=== PATIENT | male | born 1955 | race Caucasian/White ===

== ENCOUNTER 2020-12-09 15:13 | Emergency (ER) | payer OTHER, SELFPAY ==
[2020-12-09 15:13] VITALS: BP 107/79; PULSE 64; RESP 16; TEMP 37.4; O2SAT 96; BMI 24.7
--- NOTE | 2020-12-09 16:27 | CT_ITS ---
STUDY: CT LUMBAR SPINE WITHOUT CONTRAST REASON FOR EXAM: Male, 65 years old. Low back pain for a few weeks RADIATION DOSAGE (If Supplied By Facility): CTDIvol = ( 21.81 ) mGy, DLP = ( 551.99 ) mGycm TECHNIQUE: CT of the lumbar spine was performed without contrast. Sagittal and coronal images were reconstructed. Individualized dose optimization techniques were used for this CT. COMPARISON: None FINDINGS: Lumbar spine is intact with subchondral degeneration of L3-L4 based on disc collapse. There is grade 1 degenerative anterolisthesis of L4 on L5, less than 3 mm. The rest the spine is aligned. Thecal sac is moderately stenotic at L2-L3, severe at L3-L4 and L4-L5. Lateral recesses are stenotic at L3-L4 and L4-L5 bilaterally. Foramina are moderately stenotic at most lumbar levels. There is questionable right hydronephrosis versus cyst. This is incompletely evaluated. CT/Spine Lumbar without Contrast IMPRESSION: 1. Severe multilevel spondylotic thecal sac stenosis. Neurosurgical referral advised. 2. Multilevel lateral recess and foraminal stenosis. 3. Incompletely evaluated right renal findings. Refer to further imaging such as ultrasound. Electronically Signed: Schuyler Lewis MD at 18:10 EDT Tel , Service support ,
--- NOTE | 2020-12-09 16:28 | ED.VIS.BACK ---
HPI History of Present Illness Chief Complaint: Back Informant: patient Narrative Narrative: 65-year-old male presenting to the emergency department with low back pain since June. Patient tells me that is progressively gotten worse. He recently saw his primary care physician. He was taking meloxicam and stopped that is now on [place]. He states he cannot tell if the [place] is helping. He notes radiation mostly into the left leg occasionally some in the right leg. He denies any muscle strength loss. He states has been able to still kayak do the chores around the home. He notes that he has been getting up more frequently at night for urination. He feels like he empties his bladder. He denies any urinary retention, loss of perineal sensation, or fecal incontinence. He denies any injury. He denies any rashes or fevers. No IVD use. He denies any back injections. The patient notes his symptoms seem to get worse as he gets up walks around by the time he is done with his sure the pain is worse. He has difficulty finding position of comfort. He states that he has been sleeping okay during the night other than the frequent urination. PFSH PFSH Home Medications aspirin 81 mg PO DAILY 12/09/20 [History Last Taken Unknown] cranberry 400 mg PO DAILY 12/09/20 [History Last Taken Unknown] multi [id number] acid-DSS 1 tab PO/SL DAILY 12/09/20 [History Last Taken Unknown] omega-3 fatty acids [Fish Oil] 1,000 mg PO DAILY 12/09/20 [History Last Taken Unknown] Allergy/AdvReac Type Severity Reaction Status Date / Time acetaminophen [From Percocet] Allergy Other Verified 12/09/20 15:20 atorvastatin [From Lipitor] Allergy Other Verified 12/09/20 15:20 oxycodone [From Percocet] Allergy Other Verified 12/09/20 15:20 Social History (Updated 12/09/20 @ 16:[address] Brennen Lr DO) Smoking Status: Never smoker substance use type: does not use ROS ROS ED Constitutional Constitutional ED: Denies chills or weight loss Eyes Eyes: Denies change in vision or diplopia ENT ENT ED: Denies ear pain, rhinorrhea or sore throat Cardiovascular Cardiovascular: Denies chest pain, orthopnea, palpitations or racing heartbeat Respiratory/Chest Respiratory/Chest: Denies cough, dyspnea or orthopnea Gastrointestinal Gastrointestinal: Denies abdominal pain, diarrhea, nausea or vomiting Genitourinary Genitourinary ED: Reports urinary frequency; Denies dysuria or hematuria Musculoskeletal Musculoskeletal: Reports back pain; Denies arthralgias or myalgias Integumentary Denies abscess or rash Neurologic Neurologic: Denies headache(s) or weakness Psychiatric Psychiatric: Denies anxiety, depression, suicidal ideation or suicidal thoughts Endocrine Endocrinology: Denies polydipsia, polyphagia or polyuria Allergic/Immunologic Allergic/Immunologic ED: Denies mouth swelling, tongue swelling or urticaria EXAM Physical Exam Const Vital Signs: 12/09/20 15:13 Temperature 99.3 F H Temperature Source Oral Pulse Rate 64 Respiratory Rate 16 Blood Pressure 107/79 Blood Pressure Mean 88 Pulse Ox 96 Oxygen Delivery Method Room Air Positive well nourished and well developed General Appearance ED: well developed HEENT Reports normocephalic, head/scalp atraumatic and moist mucous membranes Eyes PERRL and EOMs intact bilaterally Neck no lymphadenopathy, supple and no JVD Resp normal respiratory effort and clear to auscultation bilaterally Cardio regular rate, regular rhythm and no murmurs GI normal to inspection, nondistended, normoactive bowel sounds and non-tender Palpation: soft Back/Spine no CVA tenderness and normal ROM Extremity normal to inspection General Extremety ED: Negative for edema General Extremity: Negative for edema Neuro oriented x3 and CN's II-XII intact bilaterally Sensorium / Orientation: alert Motor Exam: strength 5/5 throughout Psych mental status grossly normal Mood & Affect: Negative for depressed or tearful Skin no rashes or lesions noted and no wounds MDM MDM MDM Narrative Medical decision making narrative: Urinalysis is negative. CT the lumbar spine demonstrated severe multilevel spondylitic thecal sac stenosis. Also noted multilevel lateral recess and foraminal stenosis. Please see radiologist read for further details. Patient will be encouraged to follow-up with his primary care physician. He also has seen spine surgery at [facility] and would like to follow-up with them. I think this is very reasonable. We will send the images electronically to them. He is to call his surgeon first thing Friday morning. He was given return instructions notes understanding Lab Data Attestation: I reviewed the patient's lab results. Labs: Laboratory Results - last 24 hr 12/09/20 16:45 Urine Color Yellow Urine Clarity Clear Urine pH 5.0 Ur Specific [place] 1.015 Urine Protein Negative Urine Glucose (UA) Normal Urine Ketones Negative Urine Occult Blood Negative Urine Nitrite Negative Urine Bilirubin Negative Urine Urobilinogen Normal Ur Leukocyte Esterase 25 H Urine RBC 0-5 SEEN Urine WBC 0-5 SEEN Ur Squamous Epith Cells 0-5 SEEN Urine Bacteria 0 SEEN Urine Mucus 0 SEEN Radiography Diagnostic Testing: Radiology Impression Lumbar Spine CT 12/09/20 16:27 IMPRESSION: 1. Severe multilevel spondylotic thecal sac stenosis. Neurosurgical referral advised. 2. Multilevel lateral recess and foraminal stenosis. 3. Incompletely evaluated right renal findings. Refer to further imaging such as ultrasound. Electronically Signed: Schuyler Lewis MD at 18:10 EDT Tel , Service support , Discharge Plan Triage Chief Complaint: Back ED Provider: Brennen Lr Dx/Rx/DC Orders Clinical Impression: Acute lumbar radiculopathy Instructions: ED Sciatica Prescriptions: No Action cranberry 400 mg Capsule 400 mg PO DAILY RF: 0 Fish Oil Capsule 1,000 mg PO DAILY RF: 0 aspirin 81 mg Capsule 81 mg PO DAILY RF: 0 multi [id number] acid-DSS 1 tab PO/SL DAILY RF: 0 Primary Care Provider: Hitesh Romero Referrals: Hitesh Romero DO [Primary Care Provider] - [facility] appointment Activity Restrictions/Additional Instructions: Please call your [place] clinic surgeon first thing Friday morning to arrange follow-up Disposition Disposition: Home, Self Care
[2020-12-09 16:55] LABS: Bacteria 0 SEEN /hpf (None Seen); Mucous, Urine 0 SEEN /hpf (<or=2+)
[2020-12-09 16:57] LABS: Color, Urine Yellow (Yellow); Glucose, Dipstick Normal (Normal); Ketone-Dipstick Negative (Negative); Leukocyte Esterase-Dipstick 25 /ul (Negative); Nitrite-Dipstick Negative (Negative); Occult Blood-Urine Negative /ul (Negative); Protein-Dipstick Negative (Negative); Specific Gravity, Urine 1.015 (1.002-1.030); Urine Bilirubin Dipstick Negative (Negative); Urine Clarity Clear (Clear); Urine Urobilinogen Normal (Normal)
[2020-12-09 17:03] LABS: White Blood Cells 0-5 SEEN /hpf (0-5)
[2020-12-09 17:04] LABS: Red Blood Cells-Urine 0-5 SEEN /hpf (0-5); Squamous Epithelial Cells - UA 0-5 SEEN /hpf (0-5)
[2020-12-09 18:43] VITALS: PULSE 76; RESP 18; O2SAT 98
== END 2020-12-09 18:43 | disposition home or self-care (01) ==
PROVIDERS: Emergency Provider Emergency Medicine; PCP Family Medicine
DX: M54.16 Radiculopathy, lumbar region (principal); Z79.82 Long term (current) use of aspirin; Z79.899 Other long term (current) drug therapy
CPT/HCPCS: 72131; 81001; 99282

== ENCOUNTER → 2021-01-15 06:18 | Outpatient (CLI) | payer OTHER, SELFPAY ==
--- NOTE | 2021-01-15 06:46 | MRI_ITS ---
STUDY: MRI LUMBAR SPINE WITHOUT CONTRAST REASON FOR EXAM: Male, 65 years old. PRE OP, PAIN TECHNIQUE: Standardized fat and water weighted pulse sequences were obtained in the sagittal and axial planes. COMPARISON: CT 12/09/2020 FINDINGS: T12-L1: Moderate broad disc protrusion produces moderate spinal stenosis and mild bilateral neural foraminal stenosis. Normal lumbar lordosis. There is no substantial scoliosis. Normal conus medullaris that terminates at the T12/L1. Acute microtrabecular stress reaction of the pedicles of L4 and L5. L1-2: Mild bilateral facet hypertrophy and moderate ligament flavum hypertrophy. Mild bilobed disc protrusion produces mild spinal stenosis and mild bilateral neural foraminal stenosis. L2-3: Mild bilateral facet hypertrophy and moderate ligament flavum hypertrophy. Moderate bilateral disc protrusion produces moderate spinal stenosis with moderate bilateral lateral recess stenosis with abutment of the L3 nerve roots bilaterally and moderate bilateral neural foraminal stenosis. L3-4: Moderate facet hypertrophy and severe ligament flavum hypertrophy. 2 mm retrolisthesis of L3 on L4 with severe loss of disc height and a large broad disc protrusion produces severe spinal stenosis with severe bilateral lateral recess stenosis with effacement of the L4 nerve roots bilaterally and severe bilateral neural foraminal stenosis with effacement of the exiting L3 nerve roots bilaterally. L4-5: Severe bilateral facet hypertrophy and ligamentum flavum hypertrophy. 2 mm of anterolisthesis of L4 and L5 with a moderate broad disc protrusion produces severe spinal stenosis with severe bilateral lateral recess stenosis with effacement of the L5 nerve roots bilaterally and moderate bilateral neural foraminal stenosis with abutment of the exiting L4 nerve roots bilaterally. L5-S1: Normal endplates. Normal disc height, hydration and morphology. Normal bilateral facet joints. Normal central canal and bilateral lateral recesses. Normal bilateral intervertebral neural foramina. Normal visualized sacral ala. Normal visualized paraspinous soft tissue structures. MRI/Spine Lumbar (Routine) IMPRESSION: Multilevel degenerative changes, as described above. Electronically Signed: Devan Monaco MD at 14:05 EDT Tel , Service support ,
== END ==
PROVIDERS: PCP Family Medicine; Referring Provider Orthopaedic Surgery Orthopaedic Surgery of the Spine; Visit Provider Orthopaedic Surgery Orthopaedic Surgery of the Spine
DX: M48.00 Spinal stenosis, site unspecified (principal)
CPT/HCPCS: 72148

== ENCOUNTER 2021-05-14 09:07 | Outpatient (CLI) | payer MEDICARE, SELFPAY ==
--- NOTE | 2021-05-14 09:14 | US_ITS ---
PROCEDURES: ULTRASOUND AORTA REASON FOR EXAM: Male, 66 years old. SCREENING FOR AAA TECHNIQUE: Ultrasound evaluation of the aorta was performed with real-time and static ann-scale imaging. COMPARISON: None. FINDINGS: There is no elongation or tortuosity of the abdominal aorta. Aorta measures: Proximal 2 cm. Middle 1.6 cm. Distal 1.5 cm. Aorta measure transversely: Proximal 1. cm. Middle 1.6 cm. Distal 1. cm. Right iliac artery measures: 0.8 cm. Right iliac artery measure transversely: 0.8 cm. Left iliac artery measures: 0.9 cm. Left iliac artery measure transversely: 1.0 cm. There is no demonstrated aneurysm.. US/Aorta IMPRESSION: Normal abdominal aorta. Electronically Signed: Eliseo Littlejohn MD at 10:14 EST ,
== END 2021-05-14 23:59 | disposition home or self-care (01) ==
LOC: US 09:09
PROVIDERS: PCP Family Medicine; Referring Provider Family Medicine; Visit Provider Family Medicine
DX: Z13.6 Encounter for screening for cardiovascular disorders (principal); Z87.891 Personal history of nicotine dependence
CPT/HCPCS: 76775

== ENCOUNTER → 2021-08-29 | Outpatient (CLI) | payer MEDICARE, SELFPAY ==
[2021-08-29 12:17] LABS: Erythrocyte Sedimentation Rate 10 mm/hr (0-20)
[2021-08-29 12:18] LABS: Absolute Lymphocyte Count 2.09 X10^3/uL (0.83-4.51); Absolute Neutrophil Count 6.2 X10^3/uL (2.0-7.7); Basophil# 0.05 X10^3/uL; Basophil% 0.5 % (0-1); Eosinophil# 0.16 X10^3/uL; Eosinophils% 1.7 % (0-5); Hematocrit 41.8 % (40-54); Hemoglobin 13.9 g/dL (13.0-16.5); Lymphocyte # 2.09 X10^3/ul (0.83-4.51); Lymphocyte % 22.1 % (19-41); Mean Corp Hgb Conc 33.3 g/dL (32-36); Mean Corpuscular Hgb 29.4 pg (27.0-32.0); Mean Corpuscular Volume 88.6 fL (80-94); Mean Platelet Vol. 8.5 fl (6.2-12.0); Monocyte# 0.85 X10^3/uL; NRBC Flagged by Analyzer 0 % (0-5); Neutrophil # 6.22 X10^3/uL (2.7-7.7); Neutrophil % 65.6 % (47-70); Platelet Count 372 K/mm3 (150-450); RBC Distribution Width CV 12.8 % (11.6-14.6); RBC Distribution Width SD 41.7 fl (35.1-43.9); Red Blood Count 4.72 M/mm3 (4.6-6.2); White Blood Count 9.5 K/mm3 (4.4-11.0)
[2021-08-29 12:28] LABS: CRP 4.19 mg/L (0.0-3.0); Ferritin 44 ng/mL (26-388)
[2021-09-17 16:08] LABS: Lyme IgG P18 Ab Absent (.); Lyme IgG P23 Ab Absent (.); Lyme IgG P28 Ab Absent (.); Lyme IgG P30 Ab Absent (.); Lyme IgG P39 Ab Absent (.); Lyme IgG P41 Ab Absent (.); Lyme IgG P45 Ab Absent (.); Lyme IgG P58 Ab Absent (.); Lyme IgG P66 Ab Absent (.); Lyme IgG P93 Ab Absent (.); Lyme IgM P23 Ab Present (.); Lyme IgM P39 Ab Absent (.); Lyme IgM P41 Ab Absent (.)
[2021-09-17 17:21] LABS: Lyme IgG WB Interpretation Negative (.); Lyme IgM WB Interpretation Negative (.)
== END | disposition home or self-care (01) ==
LOC: MTLAB 10:55
PROVIDERS: PCP Family Medicine; Referring Provider Family Medicine; Visit Provider Family Medicine
DX: M06.4 Inflammatory polyarthropathy (principal); E61.1 Iron deficiency
CPT/HCPCS: 36415; 82728; 85025; 85652; 86140; 86617

== ENCOUNTER → 2021-11-08 | Outpatient (CLI) | payer MEDICARE, SELFPAY ==
--- NOTE | 2021-11-08 16:12 | MRI_ITS ---
STUDY: MRI LUMBAR SPINE WITH AND WITHOUT CONTRAST REASON FOR EXAM: Male, 66 years old. S/P LAMINECTOMY WITH SPINAL FUSION TECHNIQUE: Standardized fat and water weighted pulse sequences were obtained in the sagittal and axial planes. IV CLARISCAN 14CC was administered for the contrast portion of the examination. COMPARISON: MRI of the lumbar spine dated January 15, 2021 FINDINGS: There is straightening of the normal lumbar lordosis. There is no substantial scoliosis. Normal conus medullaris that terminates at the T12-L1 level. No marrow edema or fracture or compression deformity is present. L1-2: Moderate disc space narrowing with a diffuse disc bulge/osteophyte complex. Mild facet joint hypertrophy. Normal central canal and bilateral lateral recesses. Normal bilateral intervertebral neural foramina. L2-3: Normal endplates. Diffuse disc desiccation with mild disc space narrowing and annular bulging. Small Schmorl''s node. Superimposed small left paracentral disc protrusion causing left lateral recess stenosis and compression of descending nerve root. Normal central canal and right lateral recess. Posterior surgical decompressive defect. Mild facet joint hypertrophy. Moderate left foraminal stenosis with nerve root compression. Mild right foraminal stenosis. L3-4: Severe disc space narrowing with a diffuse disc bulge/osteophyte complex. Moderate MODIC endplate degenerative signal is also present. Retrolisthesis of L3 on L4 of no more than 2 mm. Moderate facet joint hypertrophy and degeneration. Posterior surgical decompressive defect. Mild bilateral foraminal stenosis without nerve root compression. Normal central canal and bilateral lateral recesses. L4-5: Normal endplates. Diffuse disc desiccation. Posterior postsurgical decompressive defect and bilateral pedicle screws. Mild facet joint hypertrophy. Normal disc height and morphology. Normal central canal and bilateral lateral recesses. Mild to moderate bilateral foraminal stenosis with nerve root impingement. Anterolisthesis of L4 and L5 of 3 mm. L5-S1: Normal endplates. Diffuse disc desiccation. Posterior postsurgical decompressive defect and bilateral pedicle screws. Mild facet joint hypertrophy. Normal disc height and morphology. Normal central canal and bilateral lateral recesses. Normal bilateral intervertebral neural foramina. Normal visualized sacral ala. Normal visualized paraspinous soft tissue structures. No demonstrated focal or suspicious enhancement of the bony or soft tissue structures. Enhancing postsurgical fibrotic material noted in the decompressive defect. Multiple simple cyst are reidentified in the right kidney which do not require any additional imaging. MRI/Spine Lumbar W/WO Contrast IMPRESSION: 1. Multilevel degenerative changes, as described above. 2. New posterior decompressive defects and spinal hardware from L2-L3 down to L4-L5 since the prior MRI of the lumbar spine. 3. Mild to moderate foraminal stenosis with nerve root impingement or compression at L4-L5 4. Moderate left foraminal stenosis with nerve root compression at L2-L3 Electronically Signed: Cale Krueger MD at 9:22 EDT ,
[2021-11-08 16:40] LABS: CREATININE FINGERSTICK < 0.9 mg/dL (0.70-1.30); EGFR FINGERSTICK > 60.0000 mL/min (>60)
== END | disposition home or self-care (01) ==
PROVIDERS: PCP Family Medicine; Visit Provider Orthopaedic Surgery Orthopaedic Surgery of the Spine
DX: Z98.1 Arthrodesis status (principal)
CPT/HCPCS: 72158; A9575

== ENCOUNTER → 2021-11-16 | Outpatient (CLI) | payer MEDICARE, SELFPAY ==
--- NOTE | 2021-11-16 10:04 | RAD_ITS ---
INDICATION: PAIN EXAMINATION/TECHNIQUE: X-RAY - XR Pelvis 1 or 2 Views COMPARISON: None. FINDINGS: PELVIC BONES: No displaced fracture, destructive or sclerotic lesions. Sacroiliac joints are normal. No widening of the pubic symphysis. HIPS: The articular structures are unremarkable. No displaced fracture seen in this frontal view. L4-5 bilateral transpedicular screws and bridging rods and laminectomy. SOFT TISSUES: No soft tissue swelling or gas. Rounded calcific density right abdomen likely costochondral calcification. RAD/Pelvis 1 or 2 Views IMPRESSION: No evidence of displaced pelvic or hip fracture. Electronically Signed: Scar Baires DO at 20:15 EDT ,
[2021-11-16 12:20] LABS: Absolute Lymphocyte Count 2.34 X10^3/uL (0.83-4.51); Absolute Neutrophil Count 6.4 X10^3/uL (2.0-7.7); Basophil# 0.08 X10^3/uL; Basophil% 0.8 % (0-1); Lymphocyte # 2.34 X10^3/ul (0.83-4.51); Lymphocyte % 23.3 % (19-41); Mean Corp Hgb Conc 34.8 g/dL (32-36); Mean Corpuscular Hgb 30.2 pg (27.0-32.0); Mean Corpuscular Volume 86.8 fL (80-94); Mean Platelet Vol. 8.9 fl (6.2-12.0); Monocyte# 0.86 X10^3/uL; Monocyte% 8.5 % (0-10); NRBC Flagged by Analyzer 0 % (0-5); Neutrophil # 6.42 X10^3/uL (2.7-7.7); Neutrophil % 63.8 % (47-70); Platelet Count 351 K/mm3 (150-450); RBC Distribution Width CV 13.6 % (11.6-14.6); RBC Distribution Width SD 43.2 fl (35.1-43.9); White Blood Count 10.1 K/mm3 (4.4-11.0)
[2021-11-16 12:37] LABS: ALB/GLOB Ratio 1.2 RATIO (0.9-2.4); AST(SGOT) 19 U/L (15-37); Alanine Aminotransfer ALT/SGPT 31 U/L (16-61); Albumin, Serum 4.2 g/dL (3.2-5.0); Alkaline Phosphatase 62 U/L (45-117); Anion Gap 6 (5-15); BUN 20 mg/dL (7-18); BUN/Creat Ratio 17.2 RATIO (10-20); Calcium,Total 9.1 mg/dL (8.5-10.1); Chloride 106 mmol/L (98-107); Creatinine, Serum 1.16 mg/dL (0.70-1.30); EST Glomerular Filtration Rate 67 mL/min (>60); Est Glom Filt Rate - Afr Amer 81 mL/min (>60); Globulin 3.6 g/dL (2.2-4.2); Glucose 99 mg/dL (74-106); Potassium 3.8 mmol/L (3.5-5.1); Protein, Total 7.8 g/dL (6.4-8.2); Rheumatoid Factor < 10.0 IU/mL (<15); Sodium Level 139 mmol/L (136-145)
[2021-11-16 12:53] LABS: Hepatitis B Surface Antibody Non-Reactive; Hepatitis B Surface Antigen Non-Reactive (Nonreactive); Hepatitis C Antibody Non-Reactive (Nonreactive)
[2021-11-22 11:56] LABS: CCP IgG Antibodies 4 units (0-19)
== END | disposition home or self-care (01) ==
LOC: MTLAB 10:02
PROVIDERS: PCP Family Medicine; Referring Provider Internal Medicine Rheumatology; Visit Provider Internal Medicine Rheumatology
DX: M06.4 Inflammatory polyarthropathy (principal); M17.0 Bilateral primary osteoarthritis of knee; M47.892 Other spondylosis, cervical region; M47.897 Other spondylosis, lumbosacral region; H93.13 Tinnitus, bilateral
CPT/HCPCS: 36415; 72170; 80053; 85025; 86200; 86431; 86706; 86803; 87340

== ENCOUNTER 2022-03-06 08:50 | Emergency (ER) | payer MEDICARE, SELFPAY ==
[2022-03-06 08:51] VITALS: BP 162/104; PULSE 81; RESP 16; TEMP 36.4; O2SAT 99; BMI 23.5
--- NOTE | 2022-03-06 09:13 | EDS_ITS ---
HPI History of Present Illness HPI Narrative: Presents with left hand laceration that occurred 2 days ago. Patient states he stuck his hand into a brush pile and poked his hand with a stick. Patient states he was able to remove any foreign bodies. Patient states he kept the area clean. Patient states that yesterday he noted something sticking out of the wound. Patient states he attempted to pull on it but it would not come out. Patient denies any paresthesias or weakness. Patient is unsure of his last tetanus. Patient denies any other injuries. Patient denies any redness or swelling. Chief Complaint: Laceration Informant: patient Occured/Mechanism Mechanism/Context: Yes puncture wound Onset/Context/Timing Onset: Days (2) Context: Sudden Onset Timing: Continuous Quality of Pain: Dull Location: Left hand Worsened by: Cold water Relieved by: Nothing Associated Symptoms Associated Symptoms: Negative for Parasthesia, Weakness or Loss of Funtion Narrative Tetanus Immunization: Unknown PFSH [facility] Medical History (Updated 03/06/22 @ 10:[address] Darek Wells DO) Arthritis Home Medications aspirin 81 mg capsule 81 mg PO DAILY 12/09/20 [History Last Taken Unknown] cranberry 400 mg capsule 400 mg PO DAILY 12/09/20 [History Last Taken Unknown] multi vyo-Zx-rqxys acid-DSS 1 tab PO/SL DAILY 12/09/20 [History Last Taken Unknown] omega-3 fatty acids 1,000 mg PO DAILY 12/09/20 [History Last Taken Unknown] cephalexin 500 mg capsule 500 mg PO Q6 #40 CAPSULES 03/06/22 [Rx Last Taken Unknown] Allergy/AdvReac Type Severity Reaction Status Date / Time acetaminophen [From Percocet] Allergy Other Verified 03/06/22 08:51 atorvastatin [From Lipitor] Allergy Other Verified 03/06/22 08:51 oxycodone [From Percocet] Allergy Other Verified 03/06/22 08:51 Surgical History (Updated 03/06/22 @ 09:[address] Darek Wells DO) History of back surgery Hx of arthroscopy of knee Hx of cervical spinal arthrodesis Hx of hand surgery Hx of total knee replacement Status post ORIF of fracture of ankle Social History (Updated 03/06/22 @ 09:[address] Darek Wells DO) Smoking Status: Former smoker alcohol intake: former substance use type: does not use ROS ROS ED Constitutional Constitutional ED: Denies chills or fever(s) Eyes Eyes: Denies blurry vision or change in vision ENT ENT ED: Denies rhinorrhea or sore throat Cardiovascular Cardiovascular: Denies chest pain or palpitations Respiratory/Chest Respiratory/Chest: Denies cough or dyspnea Gastrointestinal Gastrointestinal: Denies nausea or vomiting Genitourinary Genitourinary ED: Denies dysuria or hematuria Musculoskeletal Musculoskeletal: Reports back pain and neck pain Integumentary Denies abscess or rash Neurologic Neurologic: Denies headache(s) or weakness Allergic/Immunologic Allergic/Immunologic ED: Denies mouth swelling or urticaria EXAM Physical Exam Const Vital Signs: 03/06/22 08:51 Temperature 97.5 F L Temperature Source Temporal Pulse Rate 81 Respiratory Rate 16 Blood Pressure 162/104 H Blood Pressure Mean 123 Pulse Ox 99 Oxygen Delivery Method Room Air Positive well nourished and well developed General Appearance ED: well developed and NAD HEENT Reports moist mucous membranes Neck full ROM Extremity Extremity Narrative: There is a superficial laceration on the palmar surface of the left hand near the webspace between the first and second digits. There is mild gapping of the wound margins. There is a questionable foreign body noted. There is no bleeding noted. There is no surrounding erythema. There is no purulent drainage. There is no discharge. Sensation was intact to light touch in all digits. Capillary refills less than 2 seconds in all digits. There is full range of motion of the left hand and wrist. Neuro oriented x3, CN's II-XII intact bilaterally, moves all extremities, no focal motor deficits and no sensory deficits noted Sensorium / Orientation: alert Motor Exam: strength 5/5 throughout Psych mental status grossly normal MDM MDM MDM Narrative Medical decision making narrative: Was given a tetanus booster here. The wound was cleaned and irrigated with copious muscle normal saline. The wound was anesthetized 1% lidocaine locally. The wound was explored. There were no foreign bodies visualized. There were no foreign bodies palpated. The wound was cleaned and dressed with bacitracin dressing. Patient was given a dose of Keflex here. Patient was given a prescription for Keflex. Patient was instructed to keep the area clean. Patient was instructed to follow-up with his primary care physician in 5 to 7 days. Patient understood and was agreeable with the plan. All questions were answered. Discharge Plan Triage Chief Complaint: Laceration ED Provider: Darek Wells Dx/Rx/DC Orders Clinical Impression: Laceration of left hand, Puncture wound of left hand Instructions: ED Laceration, Old: Not Sutured Prescriptions: New cephalexin [cephalexin] 500 mg capsule 500 mg PO Q6 Qty: 40 0RF No Action cranberry 400 mg Capsule 400 mg PO DAILY Fish Oil Capsule 1,000 mg PO DAILY aspirin 81 mg Capsule 81 mg PO DAILY multi ppq-Ev-rkopy acid-DSS 1 tab PO/SL DAILY Primary Care Provider: Hitesh Romero Referrals: Hitesh Romero DO [Primary Care Provider] - 5-7 Days Disposition Disposition: Home, Self Care
[2022-03-06] MEDS: Diphth,Pertuss(Acell),Tet Vac 0.5 ML Vial IM (09:49)
[2022-03-06] MEDS: Lidocaine 1% (20 ml mdv) 20 ML Vial INFILT (09:50)
[2022-03-06] MEDS: Cephalexin 500 MG Capsule PO (10:29)
== END 2022-03-06 10:30 | disposition home or self-care (01) ==
PROVIDERS: Emergency Provider Emergency Medicine; PCP Family Medicine; Visit Provider Emergency Medicine
DX: S61.412A Laceration without foreign body of left hand, initial encounter (principal); S61.432A Puncture wound without foreign body of left hand, initial encounter; Z87.891 Personal history of nicotine dependence; Z23 Encounter for immunization; X58.XXXA Exposure to other specified factors, initial encounter
CPT/HCPCS: 90471; 90715; 99283

== ENCOUNTER 2024-01-28 05:54 | Day surgery (SDC) | payer MEDICARE, SELFPAY ==
[2024-01-28] VITALS (7 sets, daily range): BP systolic 101–144; BP diastolic 69–89; PULSE 63–88; RESP 12–18; TEMP 36.4–36.8; O2SAT 95–99; BMI 24.5
== END 2024-01-28 08:21 | disposition home or self-care (01) ==
LOC: EN 05:55 → AC 05:56
PROVIDERS: PCP Family Medicine; Referring Provider Family Medicine; Visit Provider Internal Medicine Gastroenterology
PROC: 0DJ08ZZ Inspection of Upper Intestinal Tract, Via Natural or Artificial Opening Endoscopic (ICD-10-PCS; CPT 43235; principal; 2024-01-28 06:55)
DX: K22.70 Barrett's esophagus without dysplasia (principal); K22.2 Esophageal obstruction; K44.9 Diaphragmatic hernia without obstruction or gangrene; K21.9 Gastro-esophageal reflux disease without esophagitis; K29.70 Gastritis, unspecified, without bleeding; Z79.82 Long term (current) use of aspirin; Z79.899 Other long term (current) drug therapy; Z79.52 Long term (current) use of systemic steroids
CPT/HCPCS: 43248; 43239; 88305; 88312; 88342; A4216; C1769; J2405

== ENCOUNTER → 2024-02-16 | Outpatient (CLI) | payer MEDICARE, SELFPAY ==
--- NOTE | 2024-02-16 06:59 | CT_ITS ---
HISTORY: gastric stenosis, fullness feeling, reflux. TECHNIQUE: Helically acquired images were obtained of the abdomen and pelvis before and after the intravenous administration of 100 mL Isovue-370. Readi-CAT also administered orally. Delayed images also obtained. A radiation dose optimization technique was used for this scan. 897 images. COMPARISON: XR 11/16/2021. FINDINGS: LOWER CHEST: Lung bases clear. BOWEL: Underdistended stomach with diffuse wall thickening. Bowel including appendix nondilated. No focal pericolonic inflammatory change observed. PERITONEUM: No significant ascites. LIVER: 7-10 mm hypoenhancing lesions in the right lobe. GALLBLADDER/BILIARY TREE: Gallbladder present. SPLEEN: Calcified granulomas. Nonenlarged. PANCREAS: Scattered small parenchymal calcifications. Homogeneous enhancement. ADRENAL GLANDS: No nodules. KIDNEYS: No nephrolithiasis, hydronephrosis, or obstructing ureteral calculus. Mild distal bilateral hydroureter. 4 x 6 cm bilobed right upper pole cyst; follow-up not indicated. VESSELS: No abdominal aortic aneurysm. Mild atherosclerosis of the abdominal aorta and its major branches. PELVIC ORGANS: Distended urinary bladder with mild wall thickening. 5.4 x 5.9 cm lobulated prostate gland with impression on the bladder base. BONES: Degenerative change. L4-5 posterior spinal fusion hardware with L3-4 and L4-5 decompressive laminectomies. Mild anterolisthesis of L4-5. CT/Abdomen/Pelvis WITH Contrast IMPRESSION: Underdistended stomach with wall thickening, possible sequela of gastritis. Small indeterminate liver lesions. Consider follow-up hepatic MRI. Distended urinary bladder with mild wall thickening from cystitis or sequela of bladder outlet obstruction. Enlarged prostate gland with impression on the bladder base. Electronically Signed: Yolanda Wakefield MD at 8:27 EST ,
[2024-02-16 07:23] LABS: CREATININE FINGERSTICK 1.1 mg/dL (0.70-1.30); EGFR FINGERSTICK > 60.0000 mL/min (>60)
== END | disposition home or self-care (01) ==
LOC: CT 06:58
PROVIDERS: PCP Family Medicine; Referring Provider Internal Medicine Gastroenterology; Visit Provider Internal Medicine Gastroenterology
DX: K31.89 Other diseases of stomach and duodenum (principal)
CPT/HCPCS: 74177; Q9967

== ENCOUNTER → 2024-03-03 | Outpatient (CLI) | payer MEDICARE, SELFPAY ==
[2024-03-03 12:51] LABS: Absolute Lymphocyte Count 3.13 X10^3/uL (0.83-4.51); Absolute Neutrophil Count 7.5 X10^3/uL (2.0-7.7); Basophil# 0.13 X10^3/uL; Eosinophil# 0.21 X10^3/uL; Eosinophils% 1.7 % (0-5); Hematocrit 39.8 % (40-54); Hemoglobin 13.4 g/dL (13.0-16.5); Lymphocyte # 3.13 X10^3/ul (0.83-4.51); Lymphocyte % 25.2 % (19-41); Mean Corp Hgb Conc 33.7 g/dL (32-36); Mean Corpuscular Hgb 30.4 pg (27.0-32.0); Mean Corpuscular Volume 90.2 fL (80-94); Mean Platelet Vol. 8.7 fl (6.2-12.0); Monocyte# 1.14 X10^3/uL; Monocyte% 9.2 % (0-10); NRBC Flagged by Analyzer 0 % (0-5); Neutrophil # 7.54 X10^3/uL (2.7-7.7); Neutrophil % 60.6 % (47-70); Platelet Count 434 K/mm3 (150-450); RBC Distribution Width CV 13.2 % (11.6-14.6); RBC Distribution Width SD 43.4 fl (35.1-43.9); Red Blood Count 4.41 M/mm3 (4.6-6.2); White Blood Count 12.4 K/mm3 (4.4-11.0)
[2024-03-03 13:22] LABS: ALB/GLOB Ratio 1.2 RATIO (0.9-2.4); AST(SGOT) 17 U/L (15-37); Alanine Aminotransfer ALT/SGPT 30 U/L (16-61); Albumin, Serum 4.2 g/dL (3.2-5.0); Alkaline Phosphatase 69 U/L (45-117); Anion Gap 5 (5-15); BUN 25 mg/dL (7-18); BUN/Creat Ratio 16.3 RATIO (10-20); Calcium,Total 9.7 mg/dL (8.5-10.1); Chloride 105 mmol/L (98-107); Creatinine, Serum 1.53 mg/dL (0.70-1.30); EST Glomerular Filtration Rate 48 mL/min (>60); Est Glom Filt Rate - Afr Amer 59 mL/min (>60); Globulin 3.5 g/dL (2.2-4.2); Glucose 110 mg/dL (74-106); Potassium 4.7 mmol/L (3.5-5.1); Protein, Total 7.7 g/dL (6.4-8.2); Sodium Level 138 mmol/L (136-145)
== END | disposition home or self-care (01) ==
LOC: BFHLAB 09:50
PROVIDERS: PCP Family Medicine; Visit Provider Family Medicine
DX: Z12.5 Encounter for screening for malignant neoplasm of prostate (principal); Z51.81 Encounter for therapeutic drug level monitoring
CPT/HCPCS: 36415; 80053; 84153; 85025; G0103

== ENCOUNTER → 2024-03-05 | Outpatient (CLI) | payer MEDICARE, SELFPAY ==
--- NOTE | 2024-03-05 11:03 | NM_ITS ---
CLINICAL: 68-year-old male with history of dyspepsia and early satiety. SEMI-SOLID PHASE 99m Tc SULFUR COLLOID GASTRIC EMPTYING STUDY COMPARISON: CT of the abdomen-pelvis 02/16/2024 FINDINGS: The patient was administered 1.0 mCi of 99m Tc sulfur colloid mixed with oatmeal and consumed per os. Image acquisitions in the anterior-posterior projections were obtained for 60 minutes. There is prompt visualization of the stomach. There is no gastroesophageal reflux identified. The T ? linear fit was calculated to be 33.28 minutes, (Normal: 12-56 minutes). NM/Gastric Emptying Study IMPRESSION: 1. NORMAL 99m Tc sulfur colloid semi-solid phase (oatmeal) gastric emptying imaging examination. A. There is normal and preserved semi-solid phase gastric emptying compared to normal controls. (Didier et al, J Nucl Med Tech 38: 186, 2010). Electronically Signed: Devan Torres DO at 10:15 EST ,
== END | disposition home or self-care (01) ==
LOC: NM 11:02
PROVIDERS: PCP Family Medicine
DX: K30 Functional dyspepsia (principal); K21.9 Gastro-esophageal reflux disease without esophagitis
CPT/HCPCS: 78264; A9541

== ENCOUNTER → 2024-04-15 | Outpatient (CLI) | payer MEDICARE, SELFPAY ==
[2024-04-16 12:08] LABS: PSA, Free 2.73 ng/mL; PSA, Free % 23.9 % (.)
== END | disposition home or self-care (01) ==
LOC: MTLAB 09:08
PROVIDERS: PCP Family Medicine; Referring Provider Nurse Practitioner; Visit Provider Nurse Practitioner
DX: R97.20 Elevated prostate specific antigen [PSA] (principal)
CPT/HCPCS: 36415; 84153; 84154

== ENCOUNTER → 2024-10-13 | Outpatient (CLI) | payer MEDICARE, SELFPAY ==
[2024-10-13 14:42] LABS: PSA,Total - Annual Screen 12.70 ng/mL (0.02-4.00)
== END | disposition home or self-care (01) ==
LOC: BFHLAB 11:24
PROVIDERS: PCP Family Medicine; Referring Provider Urology; Visit Provider Urology
DX: N40.1 Benign prostatic hyperplasia with lower urinary tract symptoms (principal)
CPT/HCPCS: 36415; 84153; G0103

== ENCOUNTER → 2025-03-04 | Outpatient (CLI) | payer MEDICARE, SELFPAY ==
[2025-03-04 12:34] LABS: Hematocrit 41.7 % (40-54); Hemoglobin 13.9 g/dL (13.0-16.5); Immature Granulocytes Count 0.100 X10^3/uL (0.0-0.0); Mean Corp Hgb Conc 33.3 g/dL (32-36); Mean Corpuscular Volume 90.3 fL (80-94); Mean Platelet Vol. 8.8 fl (6.2-12.0); NRBC Flagged by Analyzer 0 % (0-5); Platelet Count 345 K/mm3 (150-450); RBC Distribution Width CV 12.6 % (11.6-14.6); RBC Distribution Width SD 41.2 fl (35.1-43.9); Red Blood Count 4.62 M/mm3 (4.6-6.2); White Blood Count 8.2 K/mm3 (4.4-11.0)
[2025-03-04 12:44] LABS: AST(SGOT) 23 U/L (<=37); Alanine Aminotransfer ALT/SGPT 17 U/L (<=46); Albumin, Serum 4.4 g/dL (3.4-4.8); Alkaline Phosphatase 63 U/L (40-129); Anion Gap 12 (5-15); BUN 18 mg/dL (4-19); BUN/Creat Ratio 14.3 RATIO (10-20); Calcium,Total 9.3 mg/dL (7.6-11.0); Carbon Dioxide 22.4 mmol/L (21.0-32.0); Chloride 105 mmol/L (98-108); Cholesterol 328 mg/dL (<=200); Globulin 2.6 g/dL (2.2-4.2); Glucose 126 mg/dL (70-99); Low Density Lipoprotein Calc. 250 mg/dL; Potassium 3.9 mmol/L (3.3-5.1); Triglycerides 151 mg/dL; Very Low Density Lipoprotein 30 mg/dL (5-40); cholesterol:hdl ratio screen 6.60
== END | disposition home or self-care (01) ==
LOC: BFHLAB 09:32
PROVIDERS: PCP Family Medicine; Visit Provider Family Medicine
DX: I10 Essential (primary) hypertension (principal)
CPT/HCPCS: 36415; 80053; 80061; 85025